=== PATIENT | male | born 1995 | race Caucasian/White ===

== ENCOUNTER 2018-11-12 07:53 | Emergency (ER) | payer OTHER ==
[2018-11-12 08:07] VITALS: BP 133/68
[2018-11-12] MEDS ORDERED: Tetracaine 0.5% OPTH.SOL 4 ML* 1 DROP BTL RIGHT EYE ONE (08:13)
[2018-11-12] MEDS ORDERED: Fluorescein Sodium TOPICAL* 1 MG TEST STRIP OPHTHALMIC ONE (08:14)
--- NOTE | 2018-11-12 08:40 | UC ---
Eye Complaint HPI - HPI Summary HPI Summary: WAS TAKING A BUCKET DOWN FROM A SHELF LAST NIGHT WHEN DUST GOT IN HIS FACE. HAS HAD FOREIGN BODY SENSATION IN THE RIGHT EYE WITH SOME IRRITATION AND REDNESS SINCE THEN. TRY TO FLUSH IT WITH NO SUCCESS. WOKE UP THIS MORNING AND IT WAS WORSE. DOES NOT WEAR CONTACT LENSES. DENIES ANY VISUAL DISTURBANCE OUTSIDE OF MILD BLURRINESS CAUSED BY THE TEARING. - History of Current Complaint Chief Complaint: UCEye Stated Complaint: FB IN EYE Time Seen by Provider: 11/12/18 08:05 Hx Obtained From: Patient Onset/Duration: Sudden Onset, Lasting Hours, Still Present Timing: Constant Severity Initially: Moderate Severity Currently: Moderate Pain Intensity: 7 Pain Scale Used: 0-10 Numeric Character: Foreign Body Sensation Aggravating Factor(s): Blinking Alleviating Factor(s): Nothing Associated Signs And Symptoms: Positive: Drainage (Clear). Negative: Photophobia - Allergies/Home Medications Allergies/Adverse Reactions: Allergies Allergy/AdvReac Type Severity Reaction Status Date / Time No Known Allergies Allergy Verified 11/12/18 08:04 PMH/Surg Hx/FS Hx/Imm Hx Previously Healthy: Yes Other History Of: Negative For: HIV, Hepatitis B, Hepatitis C, Anticoagulant Therapy - Surgical History Surgical History: Yes Surgery Procedure, Year, and Place: Nose Reconstruction 2 & 4 years ago. Fractured Foot Sep 2013 - Family History Known Family History: Positive: Diabetes Negative: Cardiac Disease, Hypertension - Social History Alcohol Use: Occasionally Substance Use Type: None Smoking Status (MU): Current Every Day Smoker Type: Cigarettes Amount Used/How Often: 1 PPD Household Exposure Type: Cigarettes Review of Systems All Other Systems Reviewed And Are Negative: Yes Constitutional: Positive: Negative Eyes: Positive: Blurred Vision, Drainage, Eye Redness Respiratory: Positive: Negative Cardiovascular: Positive: Negative Gastrointestinal: Positive: Negative Physical Exam Triage Information Reviewed: Yes Appearance: Well-Appearing, Well-Nourished, Pain Distress - MILD DISCOMFORT DUE TO EYE PAIN Vital Signs: Initial Vital Signs Temp 98.6 F 11/12/18 08:05 Pulse 100 11/12/18 08:05 Resp 18 11/12/18 08:05 BP 133/68 11/12/18 08:05 Pulse Ox 100 11/12/18 08:05 Vital Signs Reviewed: Yes Eyes: Positive: Conjunctiva Inflamed - RIGHT EYE, Discharge - CLEAR DRAINAGE RIGHT EYE, Other: - BLACK FB RIGHT INNER UPPER EYELID. FLUORESCEIN UPTAKE IN LINEAR PATTERN 6 O'CLOCK POSITION ENT: Positive: Hearing grossly normal Neck: Positive: Supple Respiratory: Positive: No respiratory distress, No accessory muscle use Cardiovascular: Positive: Pulses Normal Abdomen Description: Positive: Soft Musculoskeletal: Positive: No Edema Neurological: Positive: Alert Psychological: Positive: Age Appropriate Behavior Skin: Negative: Rashes Eye Complaint Course/Dx - Course Course Of Treatment: SMALL FB REMOVED FROM RIGHT EYE INNER UPPER EYELID USING A QTIP. CORNEAL ABRASION SEEN WITH FLUORESCEIN STAINING. CIPRO EYE DROPS. F/U OPHTH. - Differential Dx/Diagnosis Provider Diagnosis: Foreign body of right eye, Corneal abrasion, right Discharge - Sign-Out/Discharge Documenting (check all that apply): Patient Departure All imaging exams completed and their final reports reviewed: No Studies - Discharge Plan Condition: Stable Disposition: HOME Prescriptions: Ciprofloxacin 0.3% OPTH.AMAYA* [Cipro 0.3% Opth*] 1 drop RIGHT EYE Q4H #1 btl Ketorolac 0.5% OPHTH (NF) 1 drop RIGHT EYE QID PRN #1 btl PRN Reason: Pain Patient Education Materials: Corneal Abrasion (ED), Eye Foreign Body (ED) Referrals: Moses Martin MD [Medical Doctor] - 1 Week Additional Instructions: FOREIGN BODY REMOVED FROM RIGHT UPPER EYELID TODAY. YOU DO HAVE AN ABRASION ON THE LOWER PART OF YOUR CORNEA. USE THE ANTIBIOTIC DROPS EVERY 4 HOURS WHILE AWAKE FOR A WEEK. FOLLOW-UP WITH AN EYE DOCTOR WITHIN A WEEK. SOONER IF YOU DEVELOP VISUAL DISTURBANCES, INCREASED PAIN, PURULENT DRAINAGE, FEVER OR ANY OTHER CONCERNING SYMPTOMS. - Billing Disposition and Condition Condition: STABLE Disposition: Home
== END 2018-11-12 08:41 | disposition home or self-care (01) ==
LOC: UCEAST 07:53
DX: T15.91XA Foreign body on external eye, part unspecified, right eye, initial encounter (principal); S05.01XA Injury of conjunctiva and corneal abrasion without foreign body, right eye, initial encounter; F17.210 Nicotine dependence, cigarettes, uncomplicated; X58.XXXA Exposure to other specified factors, initial encounter; Y92.9 Unspecified place or not applicable
CPT/HCPCS: 99212; A9270-GY; G0463

== ENCOUNTER 2019-12-15 08:08 | Emergency (ER) | payer OTHER ==
[2019-12-15 09:03] VITALS: BP 132/77
--- NOTE | 2019-12-15 15:12 | ED ---
Throat Pain/Nasal Congestion - HPI Summary HPI Summary: Pt. is a 24 y.o male who presents to the ER for dental pain x several days. Pt. believes his wisdom teeth are erupting. Pt. notes facial swelling and swollen lymph nodes. No associated fever. No past medical hx. Sxs are mild in severity. No current modifying factors. - History of Current Complaint Chief Complaint: EDDentalPain Time Seen by Provider: 12/15/19 08:34 - Allergies/Home Medications Allergies/Adverse Reactions: Allergies Allergy/AdvReac Type Severity Reaction Status Date / Time No Known Allergies Allergy Verified 02/09/19 08:55 Home Medications: Home Medications Fluoxetine HCl 20 mg PO QPM 12/15/19 [History Confirmed 12/15/19] PMH/Surg Hx/FS Hx/Imm Hx Previously Healthy: Yes Endocrine/Hematology History: Denies: Hx Anticoagulant Therapy, Hx Diabetes, Hx Thyroid Disease Cardiovascular History: Denies: Hx Congestive Heart Failure, Hx Deep Vein Thrombosis, Hx Hypertension , Hx Myocardial Infarction, Hx Pacemaker/ICD Respiratory History: Denies: Hx Asthma, Hx Chronic Obstructive Pulmonary Disease (COPD), Hx Lung Cancer, Hx Pneumonia, Hx Pulmonary Embolism GI History: Denies: Hx Gall Bladder Disease, Hx Gastrointestinal Bleed, Hx Ulcer, Hx Urosepsis History: Denies: Hx Kidney Stones, Hx Renal Disease Neurological History: Denies: Hx Dementia, Hx Migraine, Hx Seizures, Hx Transient Ischemic Attacks (TIA) Psychiatric History: Denies: Hx Anxiety, Hx Depression, Hx Schizophrenia, Hx Bipolar Disorder - Surgical History Surgery Procedure, Year, and Place: Nose Reconstruction 2 & 4 years ago. Fractured Foot Sep 2013 Infectious Disease History: No Infectious Disease History: Denies: Hx Clostridium Difficile, Hx Hepatitis, Hx Human Immunodeficiency Virus (HIV), Hx of Known/Suspected MRSA, Hx Shingles, Hx Tuberculosis, Hx Known/ Suspected VRE, Hx Known/Suspected VRSA, History Other Infectious Disease, Traveled Outside the [place] in Last 30 Days - Family History Known Family History: Positive: Diabetes, Non-Contributory Negative: Cardiac Disease, Hypertension - Social History Occupation: Employed Full-time Lives: With Family Alcohol Use: Occasionally Substance Use Type: Reports: None Smoking Status (MU): Light Every Day Tobacco Smoker Type: Cigarettes Amount Used/How Often: 1 PPD Review of Systems Constitutional: Negative Negative: Fever Positive: Dental Pain Respiratory: Negative Skin: Negative Neurological: Negative All Other Systems Reviewed And Are Negative: Yes Physical Exam Triage Information Reviewed: Yes Vital Signs On Initial Exam: Initial Vitals Temp Pulse Resp BP Pulse Ox 99.5 F 104 16 135/95 99 12/15/19 08:12 12/15/19 08:12 12/15/19 08:12 12/15/19 08:12 12/15/19 08:12 Vital Signs Reviewed: Yes Appearance: Positive: Well-Appearing - Pt. sitting in chair in NAD. Skin: Positive: Warm, Dry Head/Face: Positive: Normal Head/Face Inspection Eyes: Positive: Normal, EOMI, JADA, Conjunctiva Clear ENT: Positive: Pharyngeal erythema, Tonsillar swelling, Uvula midline. Negative : Tonsillar exudate, Trismus, Muffled voice, Hoarse voice Dental: Positive: Other - Poor dentition throughout with numerous areas of dental decay and tenderness. No drainable abscess. No swelling under the tongue. No submandibular edema or trimus. Neck: Positive: Supple, Enlarged Nodes @ - posterior and anterior cervical chains. Neurological: Positive: Normal, CN Intact II-III Psychiatric: Positive: Affect/Mood Appropriate Procedures - Sedation Patient Received Moderate/Deep Sedation with Procedure: No Diagnostics - Vital Signs Vital Signs Temp Pulse Resp BP Pulse Ox 12/15/19 09:01 98.4 F 83 16 132/77 99 12/15/19 08:12 99.5 F 104 16 135/95 99 - Laboratory Lab Statement: Any lab studies that have been ordered have been reviewed, and results considered in the medical decision making process. EENT Course/Dx - Course Course Of Treatment: Pt. with diffuse dental pain. Very poor dentition. Afebrile and nontoxic. No signs of ludwigs. Will tx with pnc and naproxen. Pt. given list dentist and to call today for apt. Will return to er if sxs change or worsen. - Differential Diagnoses Differential Diagnoses: Dental Abscess, Dental Caries, Dom's Angina, Pharyngitis - Diagnoses Provider Diagnoses: Dentalgia, Dental decay Discharge ED - Sign-Out/Discharge Documenting (check all that apply): Patient Departure - Discharge Plan Condition: Good Disposition: HOME Prescriptions: Naproxen [Naproxen 500 mg tab] 500 mg PO BID #20 tablet Penicillin VK 500 MG TAB(NF) [Penicillin VK 500 mg Tab] 500 mg PO QID #40 tab Patient Education Materials: Toothache (ED) Referrals: [facility] [Outside] Additional Instructions: Please see a dentist as soon as possible--list provided Take medications are directed Return to ER if symptoms change or worsen - Billing Disposition and Condition Condition: GOOD Disposition: Home - Attestation Statements Provider Attestation: I was available for consultation for this patient. I did not evaluate the patient or participate in any medical decision making or disposition decisions unless I am specifically named in the chart as having consulted on the patient. If I have consulted on the patient, please see my own ED note on the patient encounter. Betty Moreno MD
== END 2019-12-15 09:02 | disposition home or self-care (01) ==
LOC: ED 08:08
DX: K02.9 Dental caries, unspecified (principal); K08.89 Other specified disorders of teeth and supporting structures; F17.210 Nicotine dependence, cigarettes, uncomplicated
CPT/HCPCS: 99281

== ENCOUNTER 2020-01-25 03:34 | Emergency (ER) | payer SELFPAY ==
--- NOTE | 2020-01-25 03:49 | ED ---
Substance Abuse/Use - HPI Summary HPI Summary: Patient is a 24 y/o M arriving via ambulance to [facility] with cc of revival following Narcan administration [employer]. Per police and EMS, the patient had been with his friends in his van and had been using substances when he became unresponsive. Friends placed the patient on the ground outside and performed about 20 minutes of CPR. They called EMS, who administered 4mg intranasal Narcan and 2mg IV Narcan with success. The patient thought he had been inhaling cocaine. He denies drug injection. He has not received Narcan before. He has chills and a headache now. Current smoker, occasional EtOH, cocaine use. Medications reviewed. Allergies noted. - History Of Current Complaint Chief Complaint: EDSubstanceAbuse Stated Complaint: OVERDOSE PER EMS Time Seen by Provider: 01/25/20 03:37 Hx Obtained From: Patient, EMS, Other: - police Ingestion History: Type/Name Of Drug - thought was cocaine, awoke with Narcan Overdose Characteristics: Inhalation Severity Initially: Severe Severity Currently: Mild Character: Stuporous Alleviating Factor(s): Medication - Narcan by EMS Associated Signs And Symptoms: Other: - headache, chills - Allergies/Home Medications Allergies/Adverse Reactions: Allergies Allergy/AdvReac Type Severity Reaction Status Date / Time No Known Allergies Allergy Verified 01/25/20 03:37 Home Medications: Home Medications NK [No Home Medications Reported] 01/25/20 [History Confirmed 01/25/20] PMH/Surg Hx/FS Hx/Imm Hx Endocrine/Hematology History: Denies: Hx Anticoagulant Therapy, Hx Diabetes, Hx Thyroid Disease Cardiovascular History: Denies: Hx Congestive Heart Failure, Hx Deep Vein Thrombosis, Hx Hypertension , Hx Myocardial Infarction, Hx Pacemaker/ICD Respiratory History: Denies: Hx Asthma, Hx Chronic Obstructive Pulmonary Disease (COPD), Hx Lung Cancer, Hx Pneumonia, Hx Pulmonary Embolism GI History: Denies: Hx Gall Bladder Disease, Hx Gastrointestinal Bleed, Hx Ulcer, Hx Urosepsis History: Denies: Hx Kidney Stones, Hx Renal Disease Neurological History: Denies: Hx Dementia, Hx Migraine, Hx Seizures, Hx Transient Ischemic Attacks (TIA) Psychiatric History: Denies: Hx Anxiety, Hx Depression, Hx Schizophrenia, Hx Bipolar Disorder - Surgical History Surgical History: Yes Surgery Procedure, Year, and Place: Nose Reconstruction 2 & 4 years ago. Fractured Foot Sep 2013 Infectious Disease History: No Infectious Disease History: Denies: Hx Clostridium Difficile, Hx Hepatitis, Hx Human Immunodeficiency Virus (HIV), Hx of Known/Suspected MRSA, Hx Shingles, Hx Tuberculosis, Hx Known/ Suspected VRE, Hx Known/Suspected VRSA, History Other Infectious Disease, Traveled Outside the [place] in Last 30 Days - Family History Known Family History: Positive: Diabetes Negative: Cardiac Disease, Hypertension - Social History Alcohol Use: Occasionally Hx Substance Use: No Substance Use Type: Reports: Cocaine Hx Tobacco Use: Yes Smoking Status (MU): Light Every Day Tobacco Smoker Type: Cigarettes Amount Used/How Often: 1 PPD Review of Systems Positive: Chills Positive: Headache Positive: Other - substance use All Other Systems Reviewed And Are Negative: Yes Physical Exam - Summary Physical Exam Summary: Constitutional: Well-developed, Well-nourished, Alert. (-) Distressed Skin: Warm, Dry HENT: Normocephalic; Atraumatic Eyes: Conjunctiva normal Neck: Musculoskeletal ROM normal neck. (-) JVD, (-) Stridor, (-) Nuchal rigidity Cardio: Rhythm regular, rate normal, Heart sounds normal; Intact distal pulses; Radial pulses are 2+ and symmetric. (-) Murmur Pulmonary/Chest wall: Erythema of chest wall. Effort normal. (-) Respiratory distress, (-) Wheezes, (-) Rales Abd: Soft, (-) tenderness, (-) Distension, (-) Guarding, (-) Rebound Musculoskeletal: (-) Edema Lymph: (-) Cervical adenopathy Neuro: Alert, Oriented x3 Psych: Mood and affect Normal Triage Information Reviewed: Yes Vital Signs On Initial Exam: Initial Vitals Temp Pulse Resp BP Pulse Ox 97.8 F 87 20 150/91 100 01/25/20 03:36 01/25/20 03:36 01/25/20 03:36 01/25/20 03:36 01/25/20 03:36 Vital Signs Reviewed: Yes Procedures - Sedation Patient Received Moderate/Deep Sedation with Procedure: No Diagnostics - Vital Signs Vital Signs Temp Pulse Resp BP Pulse Ox 01/25/20 03:36 97.8 F 87 20 150/91 100 - Laboratory Result Diagrams: 01/25/20 03:49 01/25/20 03:49 Lab Statement: Any lab studies that have been ordered have been reviewed, and results considered in the medical decision making process. - Radiology CXR Radiology Interpretation Completed By: ED Physician Summary of Radiographic Findings: No acute abnormality. ED physician has reviewed and interpreted this imaging scan. Pending official read. - EKG 033 Cardiac Rate: NL - 84 BPM EKG Rhythm: Sinus Rhythm Summary of EKG Findings: An EKG at 0336 reveals normal sinus rhythm at 84 BPM. Significant artifact limiting further interpretation. No STEMI. ED physician has reviewed and interpreted this EKG. Re-Evaluation - Re-Evaluation First Eval Re-Evaluation Time: 06:25 Comment: patient safe for d/c, AAOx3, steady gait Course/Dx - Course Course Of Treatment: 24 y/o male pw suspected opioid overdose now s/p CPR and narcan. - well appearing, easy WOB on RA. Check labs, CXR, will observe for 2 hours post narcan. - reporting headache, given tylenol. - Diagnoses Provider Diagnoses: Opiate overdose Discharge ED - Sign-Out/Discharge Documenting (check all that apply): Patient Departure - Patient will be discharged home. - Discharge Plan Condition: Stable Disposition: HOME Patient Education Materials: Opioid Use Disorder (ED) Referrals: [facility] [Outside] - 3 Days Additional Instructions: You were seen in the emergency department for and opiate overdose. He required Narcan. Please do not use drugs. There are many resources available to help you, please seek help when you feel that you're ready. Please follow up with your primary care doctor in next 2-3 days and return to emergency department for worsening or concerning symptoms. It was a pleasure taking care of you today. - Billing Disposition and Condition Condition: STABLE Disposition: Home - Attestation Statements Document Initiated by Rip: Yes Documenting Scribe: Benita Roger Provider For Whom Rip is Documenting (Include Credential): Dr. Betty Moreno MD Scribe Attestation: I, howard Hayesed for Dr. Betty Moreno MD on 01/25/20 at 0631. Scribe Documentation Reviewed: Yes Provider Attestation: The documentation as recorded by the Benita king accurately reflects the service I personally performed and the decisions made by me, Dr. Betty Moreno MD Status of Scribe Document: Viewed
[2020-01-25 03:59] LABS: ABS Basophils 0.1 10^3/ul (0-0.2); ABS Eosinophils 0.2 10^3/ul (0-0.6); ABS Lymphocytes 2.1 10^3/ul (1.0-4.8); ABS Monocytes 0.6 10^3/ul (0-0.8); ABS Neutrophils 8.6 10^3/ul (1.5-7.7); Eosinophil % 1.3 %; Hematocrit 44 % (42-52); Hemoglobin 15.4 g/dL (14.0-18.0); Lymphocyte % 18.4 %; Mean Corpuscular HGB Conc 35 g/dL (31-36); Mean Corpuscular Hemoglobin 32 pg (27-31); Mean Corpuscular Volume 91 fL (80-94); Mean Platelet Volume 7.9 fL (7.4-10.4); Nucleated Red Blood Cells % 0.1; Platelet Count 238 10^3/uL (150-450); Red Blood Count 4.86 10^6 /uL (4.18-5.48); Red Cell Distribution Width 13 % (10-15); White Blood Count 11.5 10^3/uL (3.5-10.8)
[2020-01-25 04:16] LABS: Albumin 4.5 g/dL (3.2-5.2); Albumin/Globulin Ratio 1.5 (1-3); BUN/Creatinine Ratio 5.9 (8-20); Calcium 9.2 mg/dL (8.6-10.3); EGFR African American 106.8 (>60); EGFR Non-African American 88.3 (>60); Globulin 3.1 g/dL (2-4); Potassium 3.3 mmol/L (3.5-5.0); Total Bilirubin 0.4 mg/dL (0.2-1.0); Total Protein 7.6 g/dL (6.4-8.9)
[2020-01-25] MEDS ORDERED: Acetaminophen TAB* 325 MG PO ONE (04:16)
[2020-01-25] MEDS ORDERED: NS 0.9% 1000 ML** 1,000 ML IV ONE (04:16)
[2020-01-25 07:06] VITALS: BP 104/55
== END 2020-01-25 07:00 | disposition home or self-care (01) ==
LOC: ED 03:34
DX: T40.601A Poisoning by unspecified narcotics, accidental (unintentional), initial encounter (principal); R51 Headache; R68.83 Chills (without fever); F17.210 Nicotine dependence, cigarettes, uncomplicated; Y92.9 Unspecified place or not applicable
CPT/HCPCS: 36415; 71046; 80053; 85025; 93005; 96360; 99284; A9270-GY